=== PATIENT | female | born 1995 | race Caucasian/White ===

== ENCOUNTER 2019-12-09 14:03 | Emergency (ER) | payer BC, SELFPAY ==
--- NOTE | ~2019-12-09 | XR_ITS ---
EXAMINATION: XR lumbar spine min 4V DATE: 12/09/2019 15:07 INDICATION: Right-sided low back pain. TECHNIQUE: 6 views of lumbar spine were obtained. COMPARISON: None. FINDINGS: There is 6 degrees levocurvature of lumbar spine. There are Schmorl's nodes at many levels. There is mildly decreased disc height at T12-L1, L1-L2, and L2-L3. The facet joints are unremarkable . IMPRESSION: 1. Mild lumbar spondylosis. Reviewed, dictated and finalized at location A. [employer] IMPRESSION: 1. Mild lumbar spondylosis.
[2019-12-09 14:14] VITALS: BP 121/71; PULSE 86; RESP 16; TEMP 36.6; O2SAT 100
--- NOTE | 2019-12-09 14:53 | ED.BACK ---
HPI - Back Pain/Injury General Chief Complaint: Back Pain/Injury Stated Complaint: BACK PAIN Time Seen by Provider: 12/09/19 14:04 Source: patient Mode of arrival: ambulatory Limitations: no limitations History of Present Illness HPI Narrative: 24-year-old female presents to urgent care with complaints of low back pains for the past month. Patient denies injury to her back. Patient reports that the pain is worse with movements. Patient denies numbness, tingling, bowel or bladder problems. Patient has been taking [id number] Advil with little relief. MD elicited complaint: back pain Onset (ago): month(s) (1) Timing: intermittent Location: lumbar spine Radiation: none Exacerbating factors: movement Relieving factors: none Associated symptoms: denies other symptoms Related Data Home Medications Medication Instructions Recorded Confirmed bupropion HCl [Wellbutrin XL] 150 mg PO QAM 12/09/19 12/09/19 escitalopram oxalate 10 mg PO DAILY 12/09/19 12/09/19 Allergies Allergy/AdvReac Type Severity Reaction Status Date / Time No Known Allergies Allergy Verified 12/09/19 14:19 Review of Systems Review of Systems: All systems reviewed & are unremarkable except as noted in HPI and below Constitutional: Constitutional: Denies chills and Denies fever(s) Cardiovascular: Cardiovascular: Denies chest pain and Denies radiating jaw, neck or arm pain Respiratory: Respiratory: Denies chest congestion, Denies cough, Denies dyspnea and Denies wheezing Gastrointestinal: Gastrointestinal: Denies abdominal pain, Denies diarrhea, Denies nausea and Denies vomiting Genitourinary: Genitourinary: Denies hematuria, Denies nocturia, Denies dysuria, Denies pelvic pain, Denies flank pain, Denies urinary incontinence and Denies vaginal discharge Musculoskeletal: Musculoskeletal: Reports back pain, Denies myalgias, Denies joint swelling and Denies muscle cramps Neurologic: Denies vertigo, Denies dizziness, Denies syncope and Denies focal weakness [facility] Social History Social History (Updated 12/09/19 @ 14:55 by Megha Armstrong APN) Smoking status: Never smoker Exam Const: General: healthy appearing, no acute distress and alert Orientation/consciousness: patient oriented x3 Limitations: no limitations Neck: Neck: normal visual inspection Chest: Chest palpation & inspection: normal inspection of the chest Resp: Effort & Inspection: normal respiratory effort Auscultation: clear to auscultation bilaterally Cardio: Rate: regular rate Rhythm: regular rhythm Heart sounds: no murmurs GI: Auscultation: normal bowel sounds : General: Yes bladder normal to palpation and Yes no CVA tenderness Back/Spine/Pelvis: Back: no CVA tenderness Other: Pain noted to lower lumbar region upon palpation. There is no spinal deformity noted on exam. There is no swelling, bruising, erythema or signs of infection noted. There is no muscle spasm noted. Skin: General skin exam: normal color, no jaundice and no pallor Rashes: no rashes Neuro: General: patient oriented x3, moves all extremities and no meningeal signs Extrem: General: normal to inspection Psych: Appearance: grossly normal Mental Status: mental status grossly normal Affect: normal affect Attitude: cooperative Thought content: Yes Normal thought content present Course Vital Signs Vital signs: Vital Signs Temperature 36.6 C 12/09/19 14:14 Pulse Rate 86 12/09/19 14:14 Respiratory Rate 16 12/09/19 14:14 Blood Pressure 121/71 12/09/19 14:14 Pulse Oximetry 100 12/09/19 14:14 Temperature 36.6 C 12/09/19 14:14 Pulse Rate 86 12/09/19 14:14 Respiratory Rate 16 12/09/19 14:14 Blood Pressure 121/71 12/09/19 14:14 Pulse Oximetry 100 12/09/19 14:14 MDM - Back Pain/Injury MDM Narrative Medical decision making narrative: Lumbar x-ray results discussed with patient. Patient agrees to follow-up with her primary care provider to discuss spondy
== END 2019-12-09 15:41 | disposition home or self-care (01) ==
PROVIDERS: Emergency Provider Nurse Practitioner Family
DX: M54.5 Low back pain (principal)
CPT/HCPCS: 72110; 99213; G0463

== ENCOUNTER 2021-08-02 16:25 | Emergency (ER) | payer OTHER, SELFPAY ==
[2021-08-02 16:33] VITALS: BP 135/92; PULSE 111; RESP 16; TEMP 36.7; O2SAT 99
--- NOTE | 2021-08-02 16:33 | ED.SKABFB ---
HPI - Skin/Abscess/Foreign Bdy General Chief complaint: Skin/Abscess/Foreign Body Stated complaint: bumps on head Time Seen by Provider: 08/02/21 16:33 Source: patient and RN notes reviewed History of Present Illness HPI narrative: Patient is a 26-year-old female who presents the urgent care with complaints of a bump behind the left ear. Patient states that she noticed it on . Patient states it is slightly tender but otherwise does not cause her any pain. Denies of any upper respiratory complaints. Denies of any fevers. Patient has not anything [id number] for her symptoms. Complaints. No acute distress noted. Patient aware of the plan of care. Some parts of this dictation were generated by voice recognition software and may contain typographical and/or grammatical inaccuracies. Related Data Home Medications Medication Instructions Recorded Confirmed bupropion HCl [Wellbutrin XL] 150 mg PO QAM 12/09/19 12/09/19 escitalopram oxalate 10 mg PO DAILY 12/09/19 12/09/19 Allergies Allergy/AdvReac Type Severity Reaction Status Date / Time No Known Allergies Allergy Verified 12/09/19 14:19 Review of Systems Review of Systems: CONSTITUTIONAL: Denies fever, chills, or sweats. EYES: Denies visual changes, redness, or discharge. ENT: Denies rhinorrhea, congestion, sore throat, or otalgia. CARDIOVASCULAR: Denies chest pain, palpitations, or edema. RESPIRATORY: Denies cough or dyspnea. GASTROINTESTINAL: Denies abdominal pain, nausea, vomiting, or diarrhea. GENITOURINARY: Denies dysuria or hematuria. SKIN: Denies rash or itching. Reports of a lump on the head, behind the left ear MUSCULOSKELETAL: Denies back pain, joint pain, or myalgia. NEUROLOGIC: Denies headache, numbness, or weakness. All other systems reviewed are negative, except as documented in HPI. PMFSH Social History Social History (Updated 12/09/19 @ 14:55 by Megha Armstrong APRN) Smoking status: Never smoker Comments At the time of my signature, I reviewed and agree with the nursing past medical, surgical, social, and family history. There is no relevant family history pertinent to the patient complaint. Exam Narrative: GENERAL: This is a well-nourished, well-developed patient, in no apparent distress. HEAD: normocephalic, atraumatic. EYES: PERRL. Sclera clear/white. Vision is grossly intact. EARS: External ears normal, auditory canals clear and without drainage, TMs normal without perforation. Hearing grossly intact. Mild tender, firm left posterior auricle lymph node NOSE: External nose normal with no obvious nasal discharge, nares without redness, no rhinorrhea. THROAT: Mucous membranes moist, posterior pharynx clear. NECK: Neck supple, non-tender without lymphadenopathy CARDIOVASCULAR: Regular rate and rhythm without murmurs, gallops, or rubs. RESPIRATORY: Clear to auscultation. Breath sounds equal bilaterally. No wheezes, rales, or rhonchi. SKIN: warm, intact with no suspicious lesions or rash, good texture and turgor. NEURO: awake, alert, and oriented to person, place and time. There were no obvious focal neurologic abnormalities. EXTREMITIES: No clubbing, cyanosis, or edema. Course Vital Signs Vital signs: Vital Signs Temperature 98.1 F 08/02/21 16:33 Pulse Rate 111 H 08/02/21 16:33 Respiratory Rate 16 08/02/21 16:33 Blood Pressure 135/92 H 08/02/21 16:33 Pulse Oximetry 99 08/02/21 16:33 Temperature 98.1 F 08/02/21 16:33 Pulse Rate 111 H 08/02/21 16:33 Respiratory Rate 16 08/02/21 16:33 Blood Pressure 135/92 H 08/02/21 16:33 Pulse Oximetry 99 08/02/21 16:33 Reviewed-patient is informed that they may have pre-hypertension or hypertension based on a blood pressure reading in the department. I recommend the patient call the primary care provider listed on their discharge instructions or a physician of their choice this week to arrange follow-up for further evaluation of possible pre-hypertension or hyp
== END 2021-08-02 16:53 | disposition home or self-care (01) ==
PROVIDERS: Emergency Provider Nurse Practitioner Family
DX: H92.02 Otalgia, left ear (principal)
CPT/HCPCS: 99211; G0463